=== PATIENT | female | born 1935 | race Caucasian/White ===

== ENCOUNTER → 2017-11-02 | Outpatient (CLI) | payer MEDICARE, OTHER ==
[~2017-11-02] MED LIST: ALLO100T30 PO; ASCO500T8 PO; ASPI-496 PO; CARV80CP PO; CHOL10002 PO; CLOP75TA52 PO; EZET1TAB35 PO; GABA300C10 PO; INSU100I29 SC; INSU100V9 SC; IRON PO; LINA5TAB PO; METF500T5 PO; OLME1TAB28 PO
== END | disposition home or self-care (01) ==
LOC: WOUND 13:07
PROVIDERS: ATTEND Internal Medicine
DX: E11.622 Type 2 diabetes mellitus with other skin ulcer (principal); L97.222 Non-pressure chronic ulcer of left calf with fat layer exposed; S51.812A Laceration without foreign body of left forearm, initial encounter; E78.5 Hyperlipidemia, unspecified; E11.22 Type 2 diabetes mellitus with diabetic chronic kidney disease; I12.9 Hypertensive chronic kidney disease with stage 1 through stage 4 chronic kidney disease, or unspecified chronic kidney disease; M10.9 Gout, unspecified; N18.3 Chronic kidney disease, stage 3 (moderate); I25.10 Atherosclerotic heart disease of native coronary artery without angina pectoris; Z90.710 Acquired absence of both cervix and uterus; Z87.891 Personal history of nicotine dependence; X58.XXXA Exposure to other specified factors, initial encounter; Y93.89 Activity, other specified; Y92.89 Other specified places as the place of occurrence of the external cause; Y99.8 Other external cause status
CPT/HCPCS: 97597; G0463; WOU0463

== ENCOUNTER → 2017-11-09 | Outpatient (CLI) | payer MEDICARE, OTHER ==
[~2017-11-09] MED LIST changes: +METF500T17 PO; -METF500T5 PO
== END | disposition home or self-care (01) ==
LOC: WOUND 13:20
PROVIDERS: ATTEND Internal Medicine
DX: E11.622 Type 2 diabetes mellitus with other skin ulcer (principal); L97.222 Non-pressure chronic ulcer of left calf with fat layer exposed; S51.812D Laceration without foreign body of left forearm, subsequent encounter; E78.5 Hyperlipidemia, unspecified; E11.22 Type 2 diabetes mellitus with diabetic chronic kidney disease; I12.9 Hypertensive chronic kidney disease with stage 1 through stage 4 chronic kidney disease, or unspecified chronic kidney disease; N18.3 Chronic kidney disease, stage 3 (moderate); I25.10 Atherosclerotic heart disease of native coronary artery without angina pectoris; M10.9 Gout, unspecified; Z90.710 Acquired absence of both cervix and uterus; Z87.891 Personal history of nicotine dependence; X58.XXXD Exposure to other specified factors, subsequent encounter
CPT/HCPCS: 97597

== ENCOUNTER → 2017-11-15 | Outpatient (CLI) | payer MEDICARE, OTHER ==
[~2017-11-15] MED LIST changes: -METF500T17 PO; +METF500T5 PO
== END | disposition home or self-care (01) ==
LOC: WOUND 12:55
PROVIDERS: ATTEND Nurse Practitioner Family
DX: E11.622 Type 2 diabetes mellitus with other skin ulcer (principal); L97.222 Non-pressure chronic ulcer of left calf with fat layer exposed; S51.812D Laceration without foreign body of left forearm, subsequent encounter; E78.5 Hyperlipidemia, unspecified; E11.22 Type 2 diabetes mellitus with diabetic chronic kidney disease; I12.9 Hypertensive chronic kidney disease with stage 1 through stage 4 chronic kidney disease, or unspecified chronic kidney disease; M10.9 Gout, unspecified; N18.3 Chronic kidney disease, stage 3 (moderate); I25.10 Atherosclerotic heart disease of native coronary artery without angina pectoris; Z90.710 Acquired absence of both cervix and uterus; Z87.891 Personal history of nicotine dependence; X58.XXXD Exposure to other specified factors, subsequent encounter
CPT/HCPCS: 97597

== ENCOUNTER 2018-04-26 16:17 | Emergency (ER) | payer MEDICARE, OTHER ==
[~2018-04-26 16:17] MED LIST changes: +METF500T17 PO; -METF500T5 PO
--- NOTE | 2018-04-26 16:56 | NUR ---
PT IN ROOM. POC GLUCOSE AT 94 NOW. PER OK FOR PT TO DRINK APPLE JUICE.
[2018-04-26 16:57] LABS: BASOPHILS # (AUTO) 0.05 x10^3/uL (0-0.1); BASOPHILS % (AUTO) 1 % (0-1); EOSINOPHILS # (AUTO) 0.34 x10^3/uL (0-0.4); EOSINOPHILS % (AUTO) 4 % (1-7); LYMPHOCYTES % (AUTO) 7 % (22-44); MD NO; MEAN CORPUSCULAR HEMOGLOBIN 29.8 pg (27.0-34.8); MEAN CORPUSCULAR HGB CONC 33.4 g/dL (32.4-35.8); MEAN CORPUSCULAR VOLUME 89.3 fL (80-100); MEAN PLATELET VOLUME 8.3 fL (7.4-10.4); MONOCYTES # (AUTO) 0.48 x10^3/uL (0.2-0.8); MONOCYTES % (AUTO) 6 % (2-9); NEUTROPHILS # (AUTO) 6.67 x10^3/uL (1.8-6.8); NEUTROPHILS % (AUTO) 82 % (42-75); PLATELET COUNT 158 x10^3/uL (130-400); RED BLOOD COUNT 4.41 x10^6/uL (3.82-5.3); RED CELL DISTRIBUTION WIDTH 14.1 % (9.6-15.2)
[2018-04-26 17:08] LABS: ALANINE AMINOTRANSFERASE 10 U/L (12-78); ALBUMIN 3.3 g/dL (3.4-5.0); ANION GAP 8 mmol/L (5-15); CALCIUM 9.1 mg/dL (8.5-10.1); CHLORIDE 114 mmol/L (98-107); CREATININE 1.79 mg/dL (0.55-1.02)
[2018-04-26 17:13] LABS: ALKALINE PHOSPHATASE 54 U/L (45-117); BILIRUBIN,TOTAL 0.3 mg/dL (0.2-1.0); TOTAL PROTEIN 6.8 g/dL (6.4-8.2)
[2018-04-26 17:14] LABS: TROPONIN I < 0.015 ng/mL (0.000-0.045)
[2018-04-26 19:07] LABS: MICROSCOPIC AUTO
--- NOTE | 2018-04-26 19:07 | NUR ---
PER PT MEDICATION CHANGE WAS TO TRESIBA
[2018-04-26 19:11] LABS: CULTURE INDICATED? NO
--- NOTE | 2018-04-26 19:19 | NUR ---
REPORT FROM OBDULIA BUCIO. MD WATTS TO BEDSIDE FOR UPDATE/DISCHARGE INSTRUCTIONS.
--- NOTE | 2018-04-26 20:07 | NUR ---
PT REPORTS SHE FEELS BETTER AND IS READY TO GO, D/C ORDERS RECIEVED. PT TO D/C. FAMILY AT BEDSIDE HELPING PT GET DRESSED. IV REMOVED TO RAC, TIP INTACT.
[2018-04-26 20:10] VITALS: BP 191/72
--- NOTE | 2018-04-26 20:20 | NUR ---
MD WATTS NOTIFIED OF CBG, BP ELEVATED. AWARE, NO NEW ORDERS, PT OK TO D/C. PT REPORTS SHE TAKES COREG AT HOME TO MANAGE HTN. PT STATES SHE WILL EAT A MEAL SOON SHE GETS HOME AND CONTINUE TO CLOSELY MONITOR HER CBG. PT VERBALIZED UNDERSTANDING OF D/C INSTRUCTIONS.
== END 2018-04-26 20:24 | disposition home or self-care (01) ==
LOC: ED 20:05
DX: E11.649 Type 2 diabetes mellitus with hypoglycemia without coma (principal); M54.9 Dorsalgia, unspecified; G89.29 Other chronic pain; I25.10 Atherosclerotic heart disease of native coronary artery without angina pectoris; I10 Essential (primary) hypertension; Z79.4 Long term (current) use of insulin; Z87.891 Personal history of nicotine dependence
CPT/HCPCS: 36415; 71045; 80053; 81001; 82962; 84484; 85025; 93005; 99284

== ENCOUNTER 2019-04-02 10:03 | Outpatient (CLI) | payer MEDICARE, OTHER | END 2019-04-02 23:59 | disposition home or self-care (01) | LOC: CFH 10:03 | PROVIDERS: ATTEND Internal Medicine Cardiovascular Disease | DX: I08.0 Rheumatic disorders of both mitral and aortic valves (principal); I25.10 Atherosclerotic heart disease of native coronary artery without angina pectoris | CPT/HCPCS: 93306 ==

== ENCOUNTER → 2019-05-24 | Outpatient (CLI) | payer MEDICARE, OTHER | END | disposition home or self-care (01) | LOC: PETCFH 08:36 | PROVIDERS: ATTEND Internal Medicine Hematology & Oncology | DX: C85.19 Unspecified B-cell lymphoma, extranodal and solid organ sites (principal); K57.30 Diverticulosis of large intestine without perforation or abscess without bleeding; I25.10 Atherosclerotic heart disease of native coronary artery without angina pectoris; N28.89 Other specified disorders of kidney and ureter; N64.89 Other specified disorders of breast; N13.30 Unspecified hydronephrosis | CPT/HCPCS: 78815; A9552 ==

== ENCOUNTER → 2019-10-11 | Outpatient (CLI) | payer MEDICARE, OTHER ==
[~2019-10-11] MED LIST changes: +AMLO10TA8 PO
== END | disposition home or self-care (01) ==
LOC: PETCFH 08:39
PROVIDERS: ATTEND Internal Medicine Hematology & Oncology
DX: C82.09 Follicular lymphoma grade I, extranodal and solid organ sites (principal); N28.89 Other specified disorders of kidney and ureter
CPT/HCPCS: 78815; A9552

== ENCOUNTER → 2020-09-15 | Outpatient (CLI) | payer MEDICARE, OTHER ==
[~2020-09-15] MED LIST changes: +AMINOPHYLLINE 25 MG/ML, 10ML ONE; +AMLO-211 PO; -AMLO10TA8 PO; +REGADENOSON 0.4 MG/5 ML SYRINGE ONE
== END | disposition home or self-care (01) ==
LOC: CFH 07:33
PROVIDERS: ATTEND Internal Medicine Cardiovascular Disease
DX: I25.10 Atherosclerotic heart disease of native coronary artery without angina pectoris (principal); I10 Essential (primary) hypertension; E11.9 Type 2 diabetes mellitus without complications; Z98.61 Coronary angioplasty status
CPT/HCPCS: 78452; 93017; A9502; J0280; J2785